=== PATIENT | female | born 1985 | race Caucasian/White ===

== ENCOUNTER 2016-12-26 16:58 | Emergency (ER) | payer OTHER ==
[~2016-12-26] VITALS: Ht 167.6 cm; Wt 97.5 kg
[2016-12-26 17:05] VITALS: Ht 167.6 cm; Wt 97.5 kg
[2016-12-26] MEDS ORDERED: CARB15DR48 RIGHT EAR (20:30)
--- NOTE | 2016-12-26 20:31 | ERD ---
ER Documentation Chief Complaint Date/Time DATE: 12/26/16 TIME: 20:30 Chief Complaint RIGHT EAR CLUGGED AND PAIN X2 DAYS HPI This 31-year-old female complains of right ear congestion for last 2 days. She has mild pain. She denies any bleeding or discharge for cough and cold with congestion. ROS All systems reviewed and are negative except as per history of present illness. Medications Home Meds Active Scripts Carbamide Peroxide* (Debrox*) 6.5% - 15 Ml Drops, 10 DROP RIGHT EAR BID for 7 Days, BOTTLE Prov:EMILY CONNER MD 12/26/16 Allergies Allergies: Coded Allergies: No Known Allergy (Unverified , 12/26/16) PMhx/Soc Medical and Surgical Hx: pt denies Medical Hx Hx Alcohol Use: No Hx Substance Use: No Hx Tobacco Use: No Smoking Status: Never smoker Physical Exam Vitals Vital Signs Date Time Temp Pulse Resp B/P Pulse Ox O2 Delivery O2 Flow Rate FiO2 12/26/16 17:05 98.9 82 20 135/99 100 Physical Exam Const: [] Alert, [id number]. Head: Atraumatic Eyes: Normal Conjunctiva ENT: Normal External Ears, Nose and Mouth. Neck: Full range of motion..~ No meningismus. Resp: Clear to auscultation bilaterally Cardio: Regular rate and rhythm, no murmurs Abd: Soft, non tender, non distended. Normal bowel sounds Skin: No petechiae or rashes Back: No midline or flank tenderness Ext: No cyanosis, or edema Neur: Awake and alert Psych: Normal Mood and Affect Procedures/MDM Bilateral ears were lavaged. Most of the wax was removed. TMs appear grossly normal after lavage. Patient has signs and symptoms of impacted cerumen and felt much better after treatment. Patient has residual wax and will be treated with Debrox at home instructions to follow-up with primary doctor. There is no evidence of mastoiditis, improved, bacterial infection, additional conditions Departure Diagnosis: Primary Impression: Right ear pain Condition: Stable Patient Instructions: Cerumen Impaction, Home Care Additional Instructions: Recheck for new or worsening symptoms or primary care doctor. EMILY CONNER MD Dec 26, 2016 20:31
== END 2016-12-26 20:36 | disposition home or self-care (01) ==
LOC: FTE 16:58
DX: H92.01 Otalgia, right ear (principal); H61.23 Impacted cerumen, bilateral
CPT/HCPCS: 69209; Z7502